=== PATIENT | male | born 1950 | race Caucasian/White ===

== ENCOUNTER 2018-08-27 12:08 | Outpatient (CLI) | payer MEDICARE, OTHER ==
[2012-11-14 14:58] VITALS: BP 134/90
[2018-08-27 12:30] LABS: BASOPHILS % 0.4 (0.0-1.5); EOSINOPHILS % 2.9 % (0.0-6.8); MONOCYTES % 5.1 % (0.0-11.0); NEUTROPHILS # 5.8 # k/uL (1.4-7.7)
[2018-08-27 12:44] LABS: eGFR (Non-African) > 60
== END 2018-08-27 12:10 ==
LOC: LAB 12:08
PROVIDERS: ATTEND Family Medicine
DX: I10 Essential (primary) hypertension (principal); E78.00 Pure hypercholesterolemia, unspecified; E11.9 Type 2 diabetes mellitus without complications
CPT/HCPCS: 36415; 80053; 80061; 83036; 85025